=== PATIENT | male | born 1955 | race Caucasian/White ===

== ENCOUNTER → 2021-02-04 | Outpatient (CLI) | payer OTHER ==
--- NOTE | 2021-02-05 11:03 | ECGEPIP ---
[facility] Test Date: 2021-02-04 Pat Name: JUAN CARLOS BONILLA Department: Room: - Gender: Male Shipping Lead Person: YOAV : 1955 Requested By: Timothy Hernandez Order Number: [id number] Reading MD: Juan Carlos Stuart Measurements Intervals [place] Rate: 67 P: 61 MD: 150 QRS: 70 QRSD: 84 T: 63 QT: 380 QTc: 401 Interpretive Statements Normal sinus rhythm, Within normal limits. No prior ECG available for comparison at the time of interpretation. Electronically Signed on 02-05-2021 11:03:43 EDT by Juan Carlos Stuart
== END ==
LOC: M EKG 11:21
PROVIDERS: ATTEND Orthopaedic Surgery
DX: Z01.810 Encounter for preprocedural cardiovascular examination (principal)

== ENCOUNTER → 2024-05-08 | Outpatient (CLI) | payer OTHER | LOC: M SOG 07:48 | PROVIDERS: ATTEND Physician Assistant | DX: M19.042 Primary osteoarthritis, left hand (principal); M18.12 Unilateral primary osteoarthritis of first carpometacarpal joint, left hand ==

== ENCOUNTER → 2024-05-12 | Outpatient (CLI) | payer OTHER | LOC: M SOG 07:52 | PROVIDERS: ATTEND Physician Assistant | DX: M25.561 Pain in right knee (principal); M17.11 Unilateral primary osteoarthritis, right knee ==

== ENCOUNTER → 2024-05-16 | Outpatient (CLI) | payer OTHER ==
[2024-05-16 16:16] LABS: HEMOGLOBIN A1c 5.5 % (4.0-6.0)
== END ==
LOC: M LAB 14:43
PROVIDERS: ATTEND Physician Assistant
DX: M17.11 Unilateral primary osteoarthritis, right knee (principal)